=== PATIENT | female | born 1950 | race Caucasian/White ===

== ENCOUNTER → 2020-04-13 | Outpatient (CLI) | payer MEDICARE ==
[~2020-04-13] MED LIST: DELSYM30 MG/5 ML PO; EXPECTORANT200 MG PO; PREDNISONE 50 M50 MG PO
[2020-04-13 09:47] LABS: HEMOGLOBIN 12.3 gm/dl (12.3-15.3)
[2020-04-14 10:14] LABS: THYROXINE (T4) 8.7 ug/dL (4.5-12.0)
== END ==
LOC: LAB 08:34
PROVIDERS: Nurse Practitioner Family
DX: I10 Essential (primary) hypertension (principal); E78.5 Hyperlipidemia, unspecified; R53.83 Other fatigue; J30.2 Other seasonal allergic rhinitis
CPT/HCPCS: 36415; 80053; 80061; 84436; 84443; 84480; 85025

== ENCOUNTER → 2020-06-10 | Outpatient (CLI) | payer MEDICARE | LOC: LAB 08:47 | PROVIDERS: Nurse Practitioner Family | DX: R79.89 Other specified abnormal findings of blood chemistry (principal); I10 Essential (primary) hypertension | CPT/HCPCS: 36415; 80053 ==

== ENCOUNTER → 2020-11-19 | Outpatient (CLI) | payer MEDICARE ==
[2020-11-19 09:41] LABS: HEMOGLOBIN 12.5 gm/dl (12.3-15.3); RED BLOOD COUNT 4.03 M/UL (4.00-5.10); WHITE BLOOD COUNT 7.7 K/UL (4.5-11.0)
[2020-11-20 08:13] LABS: VITAMIN D, 25-HYDROXY 37.3 ng/mL (30.0-100.0)
== END ==
LOC: LAB 08:47
PROVIDERS: Nurse Practitioner Family
DX: R53.82 Chronic fatigue, unspecified (principal); E78.5 Hyperlipidemia, unspecified
CPT/HCPCS: 36415; 80053; 80061; 81001; 84436; 84443; 84480; 85025

== ENCOUNTER → 2021-01-04 | Outpatient (CLI) | payer MEDICARE | LOC: LAB 12:52 | PROVIDERS: Nurse Practitioner Family | DX: I10 Essential (primary) hypertension (principal) | CPT/HCPCS: 36415; 80053 ==

== ENCOUNTER 2021-02-23 08:15 | Emergency (ER) | payer MEDICARE ==
[2021-02-23 09:58] LABS: RED BLOOD COUNT 2.36 M/UL (4.00-5.10); WHITE BLOOD COUNT 18.8 K/UL (4.5-11.0)
[2021-02-23 10:24] LABS: BUN/CREATININE RATIO 17 (0-10)
== END 2021-02-23 10:15 | disposition other institution (70) ==
LOC: ER1 08:15
PROVIDERS: Emergency Medicine
DX: I72.0 Aneurysm of carotid artery (principal); I10 Essential (primary) hypertension; F17.200 Nicotine dependence, unspecified, uncomplicated; Z20.822 Contact with and (suspected) exposure to COVID-19
CPT/HCPCS: 0240U; 36430; 36600; 70450; 71045; 80053; 82550; 82553; 82803; 83605; 83874; 84484; 85025; 86850; 86900; 86901; 86920; 93005; 96374; 99285; J3010; P9016